=== PATIENT | male | born 1950 | race Caucasian/White ===

== ENCOUNTER → 2023-07-22 | Outpatient (CLI) | payer OTHER, SELFPAY ==
--- NOTE | 2023-07-22 13:50 | ECHOCS_ITS ---
Reason For Study: ISCHEMIC HEART DISEASE Procedure This was a 2D Doppler, Color Flow transthoracic echocardiogram. The study was technically difficult. Exam performed in department. Left Ventricle Normal LV size. Mild concentric left ventricular hypertrophy. Left ventricular systolic function is normal. The estimated ejection fraction is 60 %. No regional wall motion abnormalities noted. Right Ventricle Normal RV size. Normal systolic function. Mitral Valve Normal mitral valve. Mild (1+) eccentric mitral valve insufficiency. Tricuspid Valve Normal tricuspid valve. Mild to moderate (1-2+) tricuspid valve insufficiency. Pulmonary artery systolic pressure is 43 mmHg. Pulmonic Valve Normal pulmonic valve. Great Vessels Normal aortic root. The pulmonary artery is normal size. Normal inferior vena cava. Pericardium/Pleural No pericardial effusion. Medication 22 gauge I.V. with prn adaptor inserted into right arm. Diluted definity 3ml given slow IV push to enhance endocardial definition. MMode/2D Measurements & Calculations LVIDd: 5.0 cm IVSd: 1.2 cm Ao root diam: 3.1 cm LVIDs: 3.8 cm LVPWd: 1.4 cm RVDd: 4.1 cm FS: 25.1 % LAV(MOD-bp): 64.9 ml LA A4 area: 22.3 cm2 LA dimension(2D): 4.0 cm LAV(MOD-bp) Indexed: 27.8 ml/m2 LAV(MOD-sp2): 52.5 ml LAV(MOD-sp4): 57.2 ml RA A4 area: 17.9 cm2 TAPSE: 2.3 cm Time Measurements MV dec time: 0.24 sec Doppler Measurements & Calculations MV E max kaushik: 76.3 cm/sec Lat Peak E' Kaushik: 11.8 cm/sec Med Peak E' Kaushik: 12.7 cm/sec MV A max kaushik: 72.5 cm/sec E/E' lat: 6.5 E/E' med: 6.0 MV E/A: 1.1 Ao V2 max: 125.4 cm/sec LV V1 max: 103.8 cm/sec PA V2 max: 87.7 cm/sec Ao max P.3 mmHg LV V1 max P.3 mmHg TR max kaushik: 315.8 cm/sec TR max P.9 mmHg ECHO/Echo Complete W/ Contrast Interpretation Summary Normal LV size. Mild concentric left ventricular hypertrophy. Left ventricular systolic function is normal. The estimated ejection fraction is 60 %. Pulmonary artery systolic pressure is 43 mmHg. Ordering Physician: Armin Calderon Referring Physician: SHARON LOPEZ Performed By: Nat Giles RDCS
[2023-07-22 15:47] LABS: Color, Urine Yellow (Yellow); Glucose, Dipstick Normal (Normal); Ketone-Dipstick Negative (Negative); Leukocyte Esterase-Dipstick Negative /ul (Negative); Nitrite-Dipstick Negative (Negative); Occult Blood-Urine Negative /ul (Negative); Protein-Dipstick Negative (Negative); Urine Bilirubin Dipstick Negative (Negative); Urine Clarity Clear (Clear); Urine Urobilinogen Normal (Normal)
[2023-07-22 16:07] LABS: Microalbumin,Random Urine 31.8 mg/L (NO RANGE EST.)
[2023-07-22 16:23] LABS: AST(SGOT) 30 U/L (15-37); Alanine Aminotransfer ALT/SGPT 26 U/L (16-61); Albumin, Serum 3.8 g/dL (3.2-5.0); Alkaline Phosphatase 89 U/L (45-117); Anion Gap 8 (5-15); BUN 29 mg/dL (7-18); Calcium,Total 9.6 mg/dL (8.5-10.1); Chloride 103 mmol/L (98-107); Creatinine, Serum 1.53 mg/dL (0.70-1.30); EST Glomerular Filtration Rate 47 mL/min (>60); Est Glom Filt Rate - Afr Amer 57 mL/min (>60); Globulin 3.7 g/dL (2.2-4.2); Glucose 119 mg/dL (74-106); Potassium 4.9 mmol/L (3.5-5.1); Protein, Total 7.5 g/dL (6.4-8.2); Sodium Level 139 mmol/L (136-145)
== END | disposition home or self-care (01) ==
LOC: CVS 13:44
PROVIDERS: PCP Internal Medicine; Referring Provider Chiropractor; Visit Provider Chiropractor
DX: I25.9 Chronic ischemic heart disease, unspecified (principal); R80.9 Proteinuria, unspecified; I51.7 Cardiomegaly
CPT/HCPCS: 36415; 80053; 81002; 82043; 93306; Q9957; A4216; C8929